=== PATIENT | female | born 1995 | race Caucasian/White ===

== ENCOUNTER 2020-10-20 22:26 | Emergency (ER) | payer MEDICAID ==
[~2020-10-20] VITALS: Ht 165.1 cm; Wt 53.0 kg
[2020-10-20 22:42] VITALS: BP 124/82
[2020-10-20] MEDS ORDERED: TETANUS, DIPHTHERIA, PERTUSSIS VAC/PF 0.5ML (>7YR OLD) IM ONE (23:45)
[2020-10-20] MEDS ORDERED: LORAZEPAM 0.5MG TABLET PO ONE (23:45)
[2020-10-20] MEDS ORDERED: IBUPROFEN 600MG TABLET PO ONE (23:45)
[2020-10-20] MEDS ORDERED: LORAZEPAM 1MG TABLET PO ONE (23:45)
[2020-10-21] MEDS ORDERED: BACITRACIN ZINC OINT UDPKT TOP ONE (02:45)
== END 2020-10-21 03:02 | disposition home or self-care (01) ==
LOC: ER 22:26
DX: S01.01XA Laceration without foreign body of scalp, initial encounter (principal); F41.9 Anxiety disorder, unspecified; W18.39XA Other fall on same level, initial encounter; Y93.89 Activity, other specified; Y92.89 Other specified places as the place of occurrence of the external cause; Y99.8 Other external cause status
CPT/HCPCS: 12001; 70450; 81025; 90715; 99284; A4217; Z7610